=== PATIENT | male | born 1980 | race Caucasian/White ===

== ENCOUNTER 2017-01-16 16:46 | Emergency (ER) | payer BC, OTHER ==
[~2017-01-16] VITALS: Ht 175.3 cm; Wt 103.3 kg
[2017-01-16 17:06] VITALS: TEMP 37; Ht 175.3 cm; Wt 103.3 kg
[2017-01-16] MEDS ORDERED: LIDO/EPINEPHRINE/SOD BICARB 20 ML VIAL INFIL ONE (18:00)
[2017-01-16] MEDS ORDERED: CEPHALEXIN 500MG HOME PACK 1 EA BTL PO ONE (19:30)
[2017-01-16] MEDS ORDERED: CEPH500C2 PO (19:31)
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
--- NOTE | 2017-01-16 19:51 | DIAGNOSTIC IMAGING REPORT ---
LEFT ELBOW 3 VIEWS HISTORY: Left elbow pain. LEFT, LACERATION COMPARISON: None. FINDINGS: There is no fracture or dislocation. No elbow effusion. Posterior/proximal forearm soft tissue swelling. There are a few small punctate radiopaque foreign bodies within the proximal posterior forearm. IMPRESSION: No fractures. There are a few small punctate radiopaque foreign bodies within the proximal posterior forearm. Electronically signed by: Kaz Woody M.D. 01/16/2017 7:50 PM Dictated Date/Time: 01/16/2017 7:48 PM
[2017-01-16 20:05] VITALS: BP 132/68; PULSE 68; O2SAT 96
== END 2017-01-16 20:07 | disposition home or self-care (01) ==
LOC: C.EDB 16:49 → C.EDD 20:07
DX: S51.812A Laceration without foreign body of left forearm, initial encounter (principal); V18.0XXA Pedal cycle driver injured in noncollision transport accident in nontraffic accident, initial encounter; Z98.1 Arthrodesis status